=== PATIENT | female | born 2000 | race Caucasian/White ===

== ENCOUNTER 2020-02-19 09:20 | Emergency (ER) | payer BC ==
[~2020-02-19] VITALS: Ht 152.4 cm; Wt 75.7 kg
[2020-02-19 09:26] VITALS: BP_SYST 131
[2020-02-19] MEDS: KETOROLAC TROMETHAMINE 60 MG/2 ML VIAL IM ONE (09:47)
[2020-02-19 10:49] VITALS: BP_SYST 136
== END 2020-02-19 10:50 | disposition home or self-care (01) ==
LOC: SED 09:20
DX: M54.30 Sciatica, unspecified side (principal)
CPT/HCPCS: 81025; 96372; 99283; J1885